=== PATIENT | male | born 1955 | race Caucasian/White ===

== ENCOUNTER 2024-05-13 11:53 | Emergency (ER) | payer MEDICARE, MEDICAID ==
[~2024-05-13] VITALS: Ht 177.8 cm; Wt 68.2 kg
[2024-05-13 11:57] VITALS: TEMP 97
[2024-05-13 12:48] VITALS: BP 132/86; PULSE 66; O2SAT 98
[2024-05-13 12:51] VITALS: RESP 18
[2024-05-13] MEDS: ketorolac tromethamine 15mg/ml inj. IM ONE (12:51)
== END 2024-05-13 14:34 | disposition home or self-care (01) ==
LOC: ER 11:54
DX: S82.001A Unspecified fracture of right patella, initial encounter for closed fracture (principal); X58.XXXA Exposure to other specified factors, initial encounter; Y93.89 Activity, other specified; Y92.89 Other specified places as the place of occurrence of the external cause; Y99.8 Other external cause status
CPT/HCPCS: 29515; 73610; 99284; A6449; J1885

== ENCOUNTER 2024-08-23 17:47 | Emergency (ER) | payer MEDICARE, OTHER ==
[~2024-08-23] VITALS: Ht 177.8 cm; Wt 68.0 kg
[2024-08-23 21:40] VITALS: BP 112/74; PULSE 90; RESP 18; TEMP 98.6; O2SAT 99
== END 2024-08-23 21:42 | disposition home or self-care (01) ==
LOC: ER 17:48
DX: S82.891A Other fracture of right lower leg, initial encounter for closed fracture (principal); F10.129 Alcohol abuse with intoxication, unspecified; X58.XXXA Exposure to other specified factors, initial encounter; Y93.89 Activity, other specified; Y92.89 Other specified places as the place of occurrence of the external cause; Y99.8 Other external cause status
CPT/HCPCS: 73610; 99283

== ENCOUNTER 2025-02-21 15:53 | Emergency (ER) | payer MEDICARE, OTHER, MEDICAID ==
[~2025-02-21] VITALS: Ht 162.6 cm; Wt 63.6 kg
[2025-02-21 16:22] VITALS: TEMP 97.8
[2025-02-21 18:10] LABS: BASOPHILS # (AUTO) 0.1 X10'3 (0-0.2); BASOPHILS % (AUTO) 0.6 % (0-1); EOSINOPHILS % (AUTO) 0.2 % (0-6); HEMATOCRIT 42.4 % (42.0-52.0); HEMOGLOBIN 14.2 g/dl (14.0-17.9); LYMPHOCYTES # (AUTO) 1.2 X10'3 (1.1-4.8); LYMPHOCYTES % (AUTO) 12.5 % (21-51); MEAN CORPUSCULAR HEMOGLOBIN 31.3 PG (27.0-31.0); MEAN CORPUSCULAR HGB CONC 33.6 g/dL (33.0-36.5); MEAN CORPUSCULAR VOLUME 93.3 FL (78-98); MEAN PLATELET VOLUME 8.9 FL (7.4-10.4); MONOCYTES # (AUTO) 0.5 X10'3 (0-0.9); MONOCYTES % (AUTO) 5.3 % (2-12); NEUTROPHILS # (AUTO) 7.9 X10'3 (1.8-7.7); NEUTROPHILS % (AUTO) 81.4 % (42-75); PLATELET COUNT 356 X10'3 (140-440); RED BLOOD COUNT 4.55 X10'6 (4.70-6.10); RED CELL DISTRIBUTION WIDTH 15.2 % (11.5-14.5); WHITE BLOOD COUNT 9.7 X10'3 (4.5-11.0)
[2025-02-21 18:26] VITALS: BP 158/107; PULSE 64; O2SAT 97
[2025-02-21 18:27] LABS: ALANINE AMINOTRANSFERASE 59 U/L (12-78); ALBUMIN 3.8 G/DL (3.4-5.0); ALKALINE PHOSPHATASE 97 IU/L (46-116); AMYLASE 30 U/L (25-115); ANION GAP 14 (8-16); ASPARTATE AMINO TRANSFERASE 61 U/L (10-37); BILIRUBIN,TOTAL 0.6 MG/DL (0.1-1.0); BLOOD UREA NITROGEN 17 MG/DL (7-18); BUN/CREATININE RATIO 22.1 (10.0-20.0); CALCIUM 8.6 MG/DL (8.5-10.1); CHLORIDE 105 MMOL/L (99-107); CREATININE 0.77 MG/DL (0.60-1.10); GLUCOSE 116 MG/DL (70-104); LIPASE 7 U/L (16-77); POTASSIUM 3.4 MMOL/L (3.5-5.1); SODIUM 139 MMOL/L (135-145); TOTAL PROTEIN 7.7 G/DL (6.4-8.2); eCRCL 74 ML/MIN; eGFR > 90 ML/MIN
[2025-02-21 18:54] VITALS: RESP 16
[2025-02-21 18:56] LABS: BILIRUBIN,URINE NEGATIVE (Neg); CLARITY,URINE CLEAR (Clear); COLOR,URINE YELLOW (Yellow); GLUCOSE, URINE NEGATIVE (Neg); KETONES,URINE NEGATIVE (Neg); LEUKOCYTE ESTERASE ,URINE NEGATIVE (Neg); NITRITES, URINE NEGATIVE (Neg); OCCULT BLOOD,URINE MODERATE (Neg); PROTEIN,URINE NEGATIVE (Neg); UROBILINOGEN,URINE 0.2 E.U/dL (0.2-1.0)
[2025-02-21 18:57] LABS: UA COLLECTION TYPE VOIDED
[2025-02-21 19:11] LABS: BACTERIA,URINE FEW /HPF (Neg); SQUAMOUS EPITHELIAL CELL,UR MODERATE /LPF (FEW); WBC,URINE 0-4 /HPF (0-4)
== END 2025-02-21 19:41 | disposition home or self-care (01) ==
LOC: ER 15:53
DX: F10.129 Alcohol abuse with intoxication, unspecified (principal); S09.90XA Unspecified injury of head, initial encounter; S20.219A Contusion of unspecified front wall of thorax, initial encounter; W19.XXXA Unspecified fall, initial encounter; Y93.89 Activity, other specified; Y92.89 Other specified places as the place of occurrence of the external cause; Y99.8 Other external cause status; Y90.9 Presence of alcohol in blood, level not specified
CPT/HCPCS: 36415; 70450; 71101; 80053; 81001; 82150; 83690; 85025; 99284

== ENCOUNTER 2025-11-02 10:09 | Outpatient (CLI) | payer MEDICARE, OTHER, MEDICAID ==
--- NOTE | 2025-11-02 11:08 | RADIOLOGY REPORT ---
EXAM: CT CT ABDOMEN PELVIS HISTORY: CALCULUS OF KIDNEY COMPARISON: None TECHNIQUE: Helical CT images of the abdomen and pelvis were performed without contrast. Sagittal and coronal reformatted images were obtained. This CT exam was performed using one or more of the following dose reduction techniques: Automated exposure control, adjustment of the mA and/or kV according to patient size, or use of iterative reconstruction technique. Radiation Dose: CT Abdomen/Pelvis: CTDIvol 13.36 mGy, DLP 627.54 mGy*cm. FINDINGS: Urinary tract: No renal or ureteral calculi, hydronephrosis, or hydroureter bilaterally. There is a right renal inferior pole fluid density cyst. No urinary bladder calculi or abnormal wall thickening. There is [id number] prostatic enlargement, not well characterized here secondary to extensive beam hardening artifact from a left total hip arthroplasty and right trochanteric nail. Miscellaneous: The heart is not enlarged. There are coronary artery calcifications. There is a trace right pleural effusion. There is mild atelectasis or interstitial scarring in the lung bases. There are multiple old fractures of the left lower ribs. There is at least 1 gallstone in the gallbladder lumen. The pancreas is atrophic and partially calcified. The noncontrast liver, spleen, and adrenal glands are unremarkable. No abdominal aortic aneurysm. There is fecal retention in the colon, greater proximally. No abnormal bowel dilatation, free air, or free fluid. The appendix is not dilated and does not appear inflamed. There are chronic appearing fractures of the T10, T11, T12, and L1 vertebral bodies. There is a lumbosacral transitional vertebrae. There is advanced degenerative disc disease and grade 1 anterolisthesis L4-L5 without evidence of spondylolysis. There is an old fracture of the left iliac bone. There are old fractures of the right superior and in inferior pubic rami. IMPRESSION: 1. No urinary tract calculi or obstruction bilaterally. 2. Trace right pleural effusion and bilateral lung base mild atelectasis versus scarring. 3. Coronary artery disease. 4. Cholelithiasis. 5. Sequela of chronic pancreatitis. 6. Fecal retention in the colon is suggestive of constipation. 7. [id number]-qk-pgnognqk prostatic enlargement. 8. Postoperative changes of right trochanteric nail fixation and left total hip arthroplasty. 9. Chronic fractures of the T10, T11, T12, and L1 vertebral bodies; right superior and inferior pubic rami; left iliac bone; and multiple left lower ribs.
== END 2025-11-02 23:59 | disposition home or self-care (01) ==
LOC: RAD 10:09
PROVIDERS: ATTEND Nurse Practitioner Family
DX: K80.20 Calculus of gallbladder without cholecystitis without obstruction (principal); N20.0 Calculus of kidney; I25.10 Atherosclerotic heart disease of native coronary artery without angina pectoris; K86.1 Other chronic pancreatitis; N40.0 Benign prostatic hyperplasia without lower urinary tract symptoms; K59.09 Other constipation; S22.089A Unspecified fracture of T11-T12 vertebra, initial encounter for closed fracture; S32.019A Unspecified fracture of first lumbar vertebra, initial encounter for closed fracture; X58.XXXA Exposure to other specified factors, initial encounter; Y93.89 Activity, other specified; Y92.89 Other specified places as the place of occurrence of the external cause; Y99.8 Other external cause status; M51.369 Other intervertebral disc degeneration, lumbar region without mention of lumbar back pain or lower extremity pain; M43.16 Spondylolisthesis, lumbar region
CPT/HCPCS: 74176